=== PATIENT | male | born 1995 | race Caucasian/White ===

== ENCOUNTER 2017-05-13 12:00 | Emergency (ER) | payer OTHER ==
[~2017-05-13] VITALS: Ht 180.3 cm; Wt 93.6 kg
[2017-05-13 13:29] VITALS: BP 114/57
== END 2017-05-13 13:32 | disposition home or self-care (01) ==
LOC: M ED 12:00
DX: K64.8 Other hemorrhoids (principal); K59.00 Constipation, unspecified